=== PATIENT | male | born 1985 | race Two or more races ===

== ENCOUNTER → 2017-04-07 | Outpatient (CLI) | payer OTHER | LOC: CIMAGING 14:05 | PROVIDERS: ATTEND Family Medicine | DX: R07.9 Chest pain, unspecified (principal); R10.13 Epigastric pain; R53.83 Other fatigue; R06.02 Shortness of breath; R63.4 Abnormal weight loss | CPT/HCPCS: 71020-PO ==

== ENCOUNTER → 2018-03-18 | Outpatient (CLI) | payer OTHER | LOC: CIMAGING 15:30 | PROVIDERS: ATTEND Family Medicine | DX: R06.02 Shortness of breath (principal); Z87.09 Personal history of other diseases of the respiratory system | CPT/HCPCS: 71046-PO ==